=== PATIENT | female | born 1960 | race Caucasian/White ===

== ENCOUNTER 2020-05-27 20:18 | Emergency (ER) | payer BC ==
[~2020-05-27] VITALS: Ht 167.6 cm; Wt 122.0 kg
[2020-05-27 20:32] VITALS: BP 142/65
[2020-05-27] MEDS ORDERED: ACETAMINOPHEN 500 MG TABLET PO ONE (20:45)
--- NOTE | 2020-05-27 20:59 | RAD ---
Left wrist 3 views, left elbow 3 views. HISTORY: Pain after a fall. Left wrist 3 views were taken of of the left wrist. There is a comminuted fracture of the distal radius. There is impaction of the dorsal cortex. There is mild angulation. There is comminution at the articular surface. Left elbow 3 views were taken of the left elbow. There is not evidence of an acute fracture. The fat pads at the elbow are not displaced. IMPRESSION: 1. Comminuted mildly displaced impacted fracture distal radius with mild angulation. 2. No acute fracture left elbow. Electronically signed by: Pablito Butelr MD (05/27/2020 8:56 PM) [facility]
--- NOTE | 2020-05-27 21:10 | PHYS DOC ---
Past History Past Medical History: Other Additional Past Medical Histor: PE's Past Surgical History: No Surgical History Smoking: Non-smoker Alcohol Use: None Drug Use: None General Adult EDM: Chief Complaint: WRIST PAIN HPI: HPI: 59-year-old female presents with report of left wrist pain which occurred just prior to arrival. Patient reports she was walking her puppy and slipped and fell forward trying to catch herself with outstretched hand. Patient reports interval pain and swelling to left wrist. Denies head trauma or neck pain. Johnson briggs does report use of Eliquis secondary to PE. Denies other injury. Denies laceration. Review of Systems: Review of Systems: Constitutional: Denies fever or chills Musculoskeletal: Denies neck pain; reports left wrist pain Integument: Denies rash or skin lesions Neurologic: Denies headache, focal weakness or sensory changes Complete systems were reviewed and found to be within normal limits, except as documented in this note. Current Medications: Current Meds: Current Medications Medications (Trade) Dose Ordered Sig/Sylvie Start Time Stop Time Status Last Admin Dose Admin Acetaminophen (Tylenol) 500 mg 1X ONCE 05/27/20 20:45 05/27/20 20:44 DC Allergies: Allergies: Allergies Coded Allergies Type Severity Reaction Last Updated Verified No Known Drug Allergies 05/27/20 No Physical Exam: PE: Constitutional: Well developed, well nourished, no acute distress, non-toxic appearance HENT: Normocephalic, atraumatic Eyes: PERRL, EOMI, conjunctiva normal, no discharge Neck: Normal range of motion, no midline tenderness, supple Cardiovascular: Left radial pulse +2, CR < 2 sec Lungs & Thorax: No respiratory distress, equal chest rise and fall Skin: Warm, dry, no erythema, no rash Extremities: Left distal radius and ulnar tenderness on palpation, ROM limited with flexion/exention of wrist and supination/pronation Neurologic: Alert and oriented X 3, normal motor function, normal sensory function, no focal deficits noted Psychologic: Affect normal, judgment normal Current Patient Data: Vital Signs: Vital Signs Date Time Temp Pulse Resp B/P (MAP) Pulse Ox O2 Delivery O2 Flow Rate FiO2 05/27/20 20:32 98.2 70 16 142/65 (90) 98 Room Air EKG: EKG: [] Radiology/Procedures: Radiology/Procedures: PROCEDURE: WRIST 3V LEFT & ELBOW 3V LEFT HISTORY: Pain after a fall. Left wrist 3 views were taken of of the left wrist. There is a comminuted fracture of the distal radius. There is impaction of the dorsal cortex. There is mild angulation. There is comminution at the articular surface. Left elbow 3 views were taken of the left elbow. There is not evidence of an acute fracture. The fat pads at the elbow are not displaced. IMPRESSION: 1. Comminuted mildly displaced impacted fracture distal radius with mild angulation. 2. No acute fracture left elbow. Electronically signed by: Pablito Butler MD (05/27/2020 8:56 PM) [facility] Course & Med Decision Making: Course & Med Decision Making Pertinent Imaging studies reviewed. (See chart for details) Patient presents with fall on outstretched hand while walking dog and slipped and fell. Limb neurovascularly intact. X-ray obtained of wrist and elbow with findings consistent for minimally displaced distal radius fracture and ulnar styloid fracture. Sugar tong splint applied. Sling provided for comfort. Pain meds offered which patient declined. Ice applied. Patient stable for discharge with outpatient follow-up with PCP/orthopedics. Orthopedic referral provided. Discussed findings and plan with patient, who acknowledges understanding and agreement. Rashawn Disclaimer: Rashawn Disclaimer: This electronic medical record was generated, in whole or in part, using a voice recognition dictation system. Splinting Splinting : Location: Left wrist Hand-Made Type: orthoglass Splint: sugar-tong Pre-Proc Neuro Vasc Exam: normal Post-Proc Neuro Vasc Exam: normal, unchanged from pre-exam Departure Departure: Impression: Primary Impression: Distal radius fracture, left Qualified Codes: S52.502A - Unspecified fracture of the lower end of left radius, initial encounter for closed fracture Additional Impression: Fracture of ulnar styloid Qualified Codes: S52.612A - Displaced fracture of left ulna styloid process, initial encounter for closed fracture Disposition: 01 HOME/RESIDENCE PRIOR TO ADM Condition: STABLE Referrals: JANIYA SNEED MD (PCP) VIPUL MCARTHUR MD Patient Instructions: Compartment Syndrome, Splint Care, [id number], Wrist Fracture, [id number] Additional Instructions: Watch for signs of compartment syndrome. ICE area 20 min on and then leave off for next 20 min. Repeat several times daily for next few days. Use over the counter Tylenol as needed for pain. Use sling for comfort. Please continue to use shoulder to prevent "frozen shoulder" from occurring. Justification of Admission: Justification of Admission: Justification of Admission Dx: N/A JODY VILLANUEVA DO May 27, 2020 21:10
== END 2020-05-27 21:15 | disposition home or self-care (01) ==
LOC: ER 20:18
DX: S52.502A Unspecified fracture of the lower end of left radius, initial encounter for closed fracture (principal); S52.612A Displaced fracture of left ulna styloid process, initial encounter for closed fracture; Z86.711 Personal history of pulmonary embolism; Z79.01 Long term (current) use of anticoagulants; W01.0XXA Fall on same level from slipping, tripping and stumbling without subsequent striking against object, initial encounter; Y93.K1 Activity, walking an animal; Y92.89 Other specified places as the place of occurrence of the external cause; Y99.8 Other external cause status
CPT/HCPCS: 29125; 73080; 73110; 99284